=== PATIENT | female | born 1955 | race Caucasian/White ===

== ENCOUNTER 2017-05-26 08:58 | Emergency (ER) | payer OTHER ==
[2017-05-26] MEDS: NICARDipine HCL 30 MG CAPSULE PO (09:57)
== END 2017-05-26 10:29 | disposition home or self-care (01) ==
LOC: E/R 08:58
DX: I10 Essential (primary) hypertension (principal); E11.9 Type 2 diabetes mellitus without complications; Z87.891 Personal history of nicotine dependence; Z79.82 Long term (current) use of aspirin
CPT/HCPCS: 93005; 99283-25